=== PATIENT | male | born 1980 | race Hispanic/Latino ===

== ENCOUNTER 2021-01-07 21:19 | Emergency (ER) | payer SELFPAY ==
[~2021-01-07] VITALS: Ht 177.8 cm; Wt 81.6 kg
[2021-01-07 21:22] VITALS: BP 145/93
[2021-01-07] MEDS ORDERED: HYDROCODONE/ACETAMINOPHEN 5/325 MG TAB PO ONE (22:00)
[2021-01-07] MEDS ORDERED: METH4TAB15 PO (22:38)
[2021-01-07] MEDS ORDERED: IBUP-2077 PO (22:38)
== END 2021-01-07 23:16 | disposition home or self-care (01) ==
LOC: EDH 21:19
DX: G89.29 Other chronic pain (principal); M54.5 Low back pain; I10 Essential (primary) hypertension; Z79.1 Long term (current) use of non-steroidal anti-inflammatories (NSAID); Z79.52 Long term (current) use of systemic steroids
CPT/HCPCS: 72100